=== PATIENT | male | born 1950 | race Caucasian/White ===

== ENCOUNTER 2016-06-03 08:29 | Emergency (ER) | payer OTHER ==
[~2016-06-03] VITALS: Ht 182.8 cm; Wt 102.1 kg
[~2016-06-03 08:29] MED LIST: BENADRYL ALLERG25 M5 PO; EPI-PEN1 MG/ML MR; MEDROL DOSEPAK4 MG PO
[2016-06-03] MEDS ORDERED: HYDROCODONE BIT1 T11 PO (11:24)
[2016-06-03] MEDS ORDERED: IBUPROFEN600 MG PO (11:24)
[2016-06-03] MEDS ORDERED: ZOFRAN ODT4 MG SL (11:24)
== END 2016-06-03 11:34 | disposition home or self-care (01) ==
LOC: ED 08:29
DX: S06.0X0A Concussion without loss of consciousness, initial encounter (principal); Z91.038 Other insect allergy status; M54.2 Cervicalgia; W22.8XXA Striking against or struck by other objects, initial encounter; Y93.89 Activity, other specified; Y92.89 Other specified places as the place of occurrence of the external cause; Y99.9 Unspecified external cause status

== ENCOUNTER 2016-06-05 11:26 | Emergency (ER) | payer OTHER ==
[~2016-06-05 11:26] MED LIST changes: +HYDROCODONE BIT1 T11 PO; +IBUPROFEN600 MG PO; +ZOFRAN ODT4 MG SL
[2016-06-05 12:11] LABS: BASO % 0.4 % (0.0-1.0); EOS # 0.1 10*3/uL (0.0-0.4); EOS % 1.9 % (1.0-4.0); HEMATOCRIT 38.5 % (42.0-52.0); HEMOGLOBIN 13.3 g/dl (14.0-18.0); LYMPH # 1.4 10*3/uL (1.3-4.4); LYMPH % 30.8 % (27.0-41.0); MEAN CELL VOLUME 90.6 fl (80.0-94.0); MEAN CORPUSCULAR HGB 31.3 pg (27.0-31.0); MEAN CORPUSCULAR HGB CONC 34.5 g/dl (33.0-37.0); MEAN PLATELET VOLUME 8.8 fl (9.6-12.3); MONO # 0.3 10*3/uL (0.1-1.0); MONO % 6.4 % (3.0-9.0); NEUT # 2.8 10*3/uL (2.3-7.9); NEUT % 60.3 % (47.0-73.0); PLATELET COUNT AUTOMATED 231 10*3/uL (130-400); RED BLOOD COUNT 4.25 10*6/uL (4.50-5.90); RED CELL DISTRI WIDTH 13.5 % (0-14.5); WHITE BLOOD COUNT 4.7 10*3/uL (4.8-10.8)
[2016-06-05 12:56] LABS: PROTHROMBIN TIME 10.3 SECONDS (9.0-12.4)
[2016-06-05 13:04] LABS: ALBUMIN 3.5 gm/dl (3.1-4.5); ALKALINE PHOSPHATASE 52 U/L (45-117); BILIRUBIN, TOTAL 0.4 mg/dl (0.2-1.0); BUN 22 mg/dl (7-24); CARBON DIOXIDE 26 mmol/L (21-32); CHLORIDE 108 mmol/L (98-107); CKMB 0.7 ng/ml (0.5-3.6); CPK 116 U/L (39-308); EST GLOM FILT AFRICAN AMERICAN > 60 ml/min; GLUCOSE 99 mg/dL (65-99); MAGNESIUM 2.4 mg/dL (1.5-2.1); POTASSIUM 4.3 mmol/L (3.5-5.1); SGOT/AST 26 IU/L (3-35); SGPT/ALT 34 U/L (12-78); SODIUM 143 mmol/L (136-145); TOTAL PROTEIN 6.9 gm/dL (6.4-8.2)
[2016-06-05 13:08] LABS: C-REACTIVE PROTEIN < 0.29 MG/DL (0-0.3)
[2016-06-05 13:09] LABS: TROPONIN I < 0.015 ng/ml (<0.045)
[2016-06-05] MEDS ORDERED: PREDNISONE50 MG PO (14:32)
== END 2016-06-05 15:10 | disposition home or self-care (01) ==
LOC: ED 11:26
PROVIDERS: Emergency Medicine
DX: S06.0X0D Concussion without loss of consciousness, subsequent encounter (principal); R51 Headache; Z91.030 Bee allergy status; X58.XXXD Exposure to other specified factors, subsequent encounter

== ENCOUNTER → 2016-07-07 | Outpatient (CLI) | payer OTHER ==
[~2016-07-07] MED LIST changes: +PREDNISONE50 MG PO
== END | disposition home or self-care (01) ==
LOC: MRI 07:41
DX: G44.019 Episodic cluster headache, not intractable (principal); H57.02 Anisocoria; Z82.49 Family history of ischemic heart disease and other diseases of the circulatory system

== ENCOUNTER → 2018-01-31 | Outpatient (CLI) | payer MEDICARE | END | disposition home or self-care (01) | LOC: RAD 12:40 | DX: M50.323 Other cervical disc degeneration at C6-C7 level (principal); M25.551 Pain in right hip; M47.892 Other spondylosis, cervical region ==

== ENCOUNTER → 2020-09-08 | Outpatient (CLI) | payer MEDICARE ==
[~2020-09-08] MED LIST changes: +XARELTO1 EACH PO
[2020-09-08 10:49] LABS: HEMATOCRIT 39.8 % (42.0-52.0); MEAN CELL VOLUME 90.9 fl (80.0-94.0); MEAN CORPUSCULAR HGB 30.4 pg (27.0-31.0); MEAN CORPUSCULAR HGB CONC 33.4 g/dl (33.0-37.0); MEAN PLATELET VOLUME 8.4 fl (9.6-12.3); RED BLOOD COUNT 4.38 10*6/uL (4.50-5.90); RED CELL DISTRI WIDTH 13.2 % (0-14.5); WHITE BLOOD COUNT 5.5 10*3/uL (4.8-10.8)
[2020-09-10 01:06] LABS: ANTI-THROMBIN III ACTIVITY 133 % (75-135); PROTEIN S - FUNCTIONAL 120 % (63-140); PROTEIN S, FREE 174 % (57-157); PROTEIN S, TOTAL 162 % (60-150)
[2020-09-10 04:07] LABS: DILUTE PROTHROMBIN TIME 57.7 sec (0.0-55.0); DPT CONFIRM RATIO 0.97 Ratio (0.00-1.40); PTT-LA 47.6 sec (0.0-51.9); THROMBIN TIME 20.5 sec (0.0-23.0)
[2020-09-10 08:08] LABS: LUPUS DRVVT 142.2 sec (0.0-47.0)
[2020-09-10 09:07] LABS: LUPUS REFLEX INTERPRETATION Comment: (.)
== END | disposition home or self-care (01) ==
LOC: LAB 09:45
PROVIDERS: ATTEND Family Medicine
DX: I26.99 Other pulmonary embolism without acute cor pulmonale (principal); E83.41 Hypermagnesemia; D64.9 Anemia, unspecified

== ENCOUNTER → 2020-10-08 | Outpatient (CLI) | payer MEDICARE | END | disposition home or self-care (01) | LOC: RESCLI 00:55 | PROVIDERS: ATTEND Internal Medicine | DX: D64.9 Anemia, unspecified (principal); I26.99 Other pulmonary embolism without acute cor pulmonale; E78.5 Hyperlipidemia, unspecified; F10.20 Alcohol dependence, uncomplicated; Z88.8 Allergy status to other drugs, medicaments and biological substances; Z79.899 Other long term (current) drug therapy ==

== ENCOUNTER 2023-11-07 08:05 | Inpatient (IN) | payer MEDICARE ==
[~2023-11-07] VITALS: Ht 182.8 cm; Wt 103.1 kg
[2023-11-07 08:12] VITALS: BP 117/79
[2023-11-07] MEDS ORDERED: ROSUVASTATIN CAL5 MG PO (08:36)
[2023-11-07] MEDS ORDERED: Ondansetron4 MG PO (08:36)
[2023-11-07] MEDS ORDERED: TOPIRAMATE25 M3 PO (08:36)
[2023-11-07] MEDS ORDERED: NAPROXEN500 MG PO (08:36)
[2023-11-07] MEDS ORDERED: SUMATRIPTAN SU100 M1 PO (08:37)
[2023-11-07] MEDS ORDERED: LOSARTAN POTASS50 M1 PO (08:37)
[2023-11-07] MEDS ORDERED: TAMSULOSIN HCL0.4 MG PO (08:37)
[2023-11-07 08:48] LABS: EOS # 0.1 10*3/uL (0.0-0.4); EOS % 1.5 % (1.0-4.0); HEMATOCRIT 35.7 % (42.0-52.0); LYMPH # 0.5 10*3/uL (1.3-4.4); LYMPH % 10.6 % (27.0-41.0); MEAN CELL VOLUME 93.9 fl (80.0-94.0); MEAN CORPUSCULAR HGB 31.1 pg (27.0-31.0); MEAN CORPUSCULAR HGB CONC 33.1 g/dl (33.0-37.0); MEAN PLATELET VOLUME 8.5 fl (9.6-12.3); MONO # 0.6 10*3/uL (0.1-1.0); MONO % 13.2 % (3.0-9.0); NEUT # 3.5 10*3/uL (2.3-7.9); NEUT % 74.5 % (47.0-73.0); PLATELET COUNT AUTOMATED 238 10*3/uL (130-400); RED CELL DISTRI WIDTH 13.6 % (0-14.5); WHITE BLOOD COUNT 4.7 10*3/uL (4.8-10.8)
[2023-11-07 08:59] LABS: ACT PARTIAL THROMBO TIME 30.2 SECONDS (20.0-32.1)
[2023-11-07 09:14] LABS: ALKALINE PHOSPHATASE 72 U/L (46-116); BUN 23 mg/dl (9-23); CHLORIDE 104 mmol/L (98-107); POTASSIUM 3.9 mmol/L (3.4-5.1); SGPT/ALT 46 U/L (5-49); TOTAL PROTEIN 7.4 gm/dL (6.0-8.0)
[2023-11-07] MEDS ORDERED: IOHEXOL 350 MG/ML 100 ML VIAL IV ONE (10:05)
[2023-11-07] MEDS ORDERED: SODIUM CHLORIDE 0.9% 100 ML BAG IV ONE (10:05)
[2023-11-07 11:42] VITALS: BP 104/57
[2023-11-07] MEDS ORDERED: Enoxaparin Sodium 100 MG/ML SYR SC ONE (11:45)
[2023-11-07] MEDS ORDERED: TOPIRAMATE 25 MG TAB PO ONE (12:10)
[2023-11-07] MEDS ORDERED: ACETAMINOPHEN 325 MG TAB PO PRN (12:50)
[2023-11-07] MEDS ORDERED: Ondansetron Hydrochloride 4 MG/2 ML VIAL IV PRN (12:50)
[2023-11-07] MEDS ORDERED: Enoxaparin Sodium 100 MG/ML SYR SC SCH ×2 (12:58→22:00)
[2023-11-07 16:00] VITALS: BP 110/56
[2023-11-07] MEDS ORDERED: Ketorolac Tromethamine 15 MG/ML VIAL IV ONE (18:55)
[2023-11-07 23:54] VITALS: BP 151/78
[2023-11-08] VITALS (9 sets, daily range): BP systolic 110–131; BP diastolic 53–68
[2023-11-08] MEDS ORDERED: HYDROCODONE-AC1 EACH PO (00:31)
[2023-11-08] MEDS ORDERED: PROCHLORPERAZIN10 MG PO (00:32)
[2023-11-08] MEDS ORDERED: BICALUTAMIDE50 MG PO (01:27)
[2023-11-08 05:35] LABS: ALKALINE PHOSPHATASE 66 U/L (46-116); BUN 26 mg/dl (9-23); CHLORIDE 105 mmol/L (98-107); CHOLESTEROL 131 mg/dL (<200); FREE T4 1.27 ng/dl (0.89-1.76); LDL CHOLESTEROL 77 mg/dL (9-159); POTASSIUM 3.7 mmol/L (3.4-5.1); SGPT/ALT 44 U/L (5-49); TOTAL PROTEIN 6.7 gm/dL (6.0-8.0); TRIGLYCERIDES 96 mg/dl (<150)
[2023-11-08 06:17] LABS: BASO % 0.6 % (0.0-1.0); EOS # 0.1 10*3/uL (0.0-0.4); EOS % 2.9 % (1.0-4.0); HEMATOCRIT 33.1 % (42.0-52.0); LYMPH # 0.4 10*3/uL (1.3-4.4); LYMPH % 12.4 % (27.0-41.0); MEAN CELL VOLUME 92.2 fl (80.0-94.0); MEAN CORPUSCULAR HGB 30.9 pg (27.0-31.0); MEAN CORPUSCULAR HGB CONC 33.5 g/dl (33.0-37.0); MEAN PLATELET VOLUME 8.9 fl (9.6-12.3); MONO # 0.5 10*3/uL (0.1-1.0); MONO % 14.5 % (3.0-9.0); NEUT # 2.4 10*3/uL (2.3-7.9); PLATELET COUNT AUTOMATED 242 10*3/uL (130-400); RED BLOOD COUNT 3.59 10*6/uL (4.50-5.90); RED CELL DISTRI WIDTH 13.4 % (0-14.5); WHITE BLOOD COUNT 3.5 10*3/uL (4.8-10.8)
[2023-11-08] MEDS ORDERED: Acetaminophen/Hydrocodone 5 MG/325 MG TABLET PO PRN (08:05)
[2023-11-08 08:35] LABS: VITAMIN D, 25-HYDROXY 42.4 ng/mL (30-100)
[2023-11-08] MEDS ORDERED: BICALUTAMIDE 50 MG TAB PO SCH (10:00)
[2023-11-08] MEDS ORDERED: TOPIRAMATE 25 MG TAB PO SCH (10:00)
[2023-11-08] MEDS ORDERED: Tamsulosin Hydrochloride 0.4 MG CAP PO SCH (10:00)
[2023-11-08] MEDS ORDERED: Losartan Potassium 50 MG TAB PO SCH (10:00)
[2023-11-08] MEDS ORDERED: LEVOFLOXACIN 750 MG TAB PO SCH (10:25)
[2023-11-08] MEDS ORDERED: SODIUM CHLORIDE 0.9% 1,000 ML IV ONE (11:55)
[2023-11-09] VITALS: BP 126/72
[2023-11-09 08:00] VITALS: BP 140/77
[2023-11-09] MEDS ORDERED: HEPARIN SODIUM 250 ML IV SCH (10:20)
[2023-11-09 16:00] VITALS: BP 109/59
[2023-11-09] MEDS ORDERED: WARFARIN SODIUM 5 MG TAB PO SCH (18:00)
[2023-11-09 20:00] VITALS: BP 106/48
[2023-11-10] VITALS: BP 107/59
[2023-11-10 04:26] LABS: BASO % 0.4 % (0.0-1.0); EOS # 0.1 10*3/uL (0.0-0.4); EOS % 3.5 % (1.0-4.0); HEMATOCRIT 33.1 % (42.0-52.0); LYMPH # 0.6 10*3/uL (1.3-4.4); LYMPH % 20.7 % (27.0-41.0); MEAN CELL VOLUME 91.2 fl (80.0-94.0); MEAN CORPUSCULAR HGB 31.1 pg (27.0-31.0); MEAN CORPUSCULAR HGB CONC 34.1 g/dl (33.0-37.0); MEAN PLATELET VOLUME 8.6 fl (9.6-12.3); MONO # 0.3 10*3/uL (0.1-1.0); MONO % 11.6 % (3.0-9.0); NEUT # 1.8 10*3/uL (2.3-7.9); NEUT % 63.1 % (47.0-73.0); PLATELET COUNT AUTOMATED 252 10*3/uL (130-400); RED BLOOD COUNT 3.63 10*6/uL (4.50-5.90); RED CELL DISTRI WIDTH 13.9 % (0-14.5); WHITE BLOOD COUNT 2.9 10*3/uL (4.8-10.8)
[2023-11-10 05:10] LABS: BUN 23 mg/dl (9-23); CHLORIDE 108 mmol/L (98-107); POTASSIUM 3.8 mmol/L (3.4-5.1)
[2023-11-10 08:00] VITALS: BP 122/51
[2023-11-10 12:00] VITALS: BP 124/55
[2023-11-10 16:00] VITALS: BP 100/64
[2023-11-10 20:19] VITALS: BP 117/58
[2023-11-11] VITALS: BP 110/54
[2023-11-11 06:22] LABS: EOS # 0.1 10*3/uL (0.0-0.4); EOS % 4.6 % (1.0-4.0); HEMATOCRIT 32.5 % (42.0-52.0); LYMPH # 0.6 10*3/uL (1.3-4.4); MEAN CELL VOLUME 91.8 fl (80.0-94.0); MEAN CORPUSCULAR HGB 31.6 pg (27.0-31.0); MEAN CORPUSCULAR HGB CONC 34.5 g/dl (33.0-37.0); MONO # 0.3 10*3/uL (0.1-1.0); MONO % 10.8 % (3.0-9.0); NEUT % 64.6 % (47.0-73.0); PLATELET COUNT AUTOMATED 279 10*3/uL (130-400); RED BLOOD COUNT 3.54 10*6/uL (4.50-5.90); RED CELL DISTRI WIDTH 13.9 % (0-14.5); WHITE BLOOD COUNT 3.1 10*3/uL (4.8-10.8)
[2023-11-11 06:29] LABS: ACT PARTIAL THROMBO TIME 35.4 SECONDS (20.0-32.1)
[2023-11-11 08:00] VITALS: BP 105/48
[2023-11-11 11:58] VITALS: BP 106/55
[2023-11-11] MEDS ORDERED: predniSONE 20 MG TAB PO SCH (14:05)
[2023-11-11 16:00] VITALS: BP 120/63
[2023-11-11] MEDS ORDERED: WARFARIN SODIUM 7.5 MG TAB PO SCH (18:00)
[2023-11-11 20:00] VITALS: BP 119/66
[2023-11-12] VITALS: BP 123/69
[2023-11-12 05:40] LABS: BUN 20 mg/dl (9-23); CHLORIDE 108 mmol/L (98-107); POTASSIUM 4.4 mmol/L (3.4-5.1)
[2023-11-12 06:24] LABS: ACT PARTIAL THROMBO TIME 58.6 SECONDS (20.0-32.1)
[2023-11-12 08:00] VITALS: BP 139/68
[2023-11-12 16:00] VITALS: BP 122/65
[2023-11-12 20:00] VITALS: BP 108/57
[2023-11-13] VITALS: BP 100/55
[2023-11-13 06:53] LABS: ACT PARTIAL THROMBO TIME 85.5 SECONDS (20.0-32.1)
[2023-11-13 08:00] VITALS: BP 135/76
[2023-11-13] MEDS ORDERED: GADOTERATE MEGLUMINE 10 MMOL/20 ML VIAL IV ONE (09:38)
[2023-11-13] MEDS ORDERED: Coumadin7.5 MG PO (10:37)
[2023-11-13 12:00] VITALS: BP 131/66
[2023-11-13] MEDS ORDERED: BISACODYL 5 MG TAB PO ONE (15:10)
[2023-11-13] MEDS ORDERED: WARFARIN SODIUM 6 MG TAB PO SCH (18:00)
== END 2023-11-13 15:45 | disposition home or self-care (01) | DRG 175 ==
LOC: ED 08:05 → 4E 11:48 → EDHOLD 11:48 → ICCU 11:48 → 4E 11-10 19:19
PROVIDERS: Emergency Medicine; Internal Medicine; Internal Medicine Critical Care Medicine; Registered Nurse; ADMIT Internal Medicine; ATTEND Internal Medicine
DX: I26.93 Single subsegmental thrombotic pulmonary embolism without acute cor pulmonale (principal); J15.69 Pneumonia due to other Gram-negative bacteria; E44.0 Moderate protein-calorie malnutrition; N17.9 Acute kidney failure, unspecified; J98.11 Atelectasis; D68.51 Activated protein C resistance; G44.029 Chronic cluster headache, not intractable; I10 Essential (primary) hypertension; E66.9 Obesity, unspecified; Z96.652 Presence of left artificial knee joint; E78.2 Mixed hyperlipidemia; R73.9 Hyperglycemia, unspecified; R00.1 Bradycardia, unspecified; Z85.46 Personal history of malignant neoplasm of prostate; Z68.30 Body mass index [BMI] 30.0-30.9, adult; Z91.030 Bee allergy status; Z79.1 Long term (current) use of non-steroidal anti-inflammatories (NSAID); Z79.899 Other long term (current) drug therapy; Z82.3 Family history of stroke

== ENCOUNTER → 2023-11-15 | Outpatient (CLI) | payer MEDICARE ==
[~2023-11-15] MED LIST changes: +BICALUTAMIDE50 MG PO; +Coumadin7.5 MG PO; +HYDROCODONE-AC1 EACH PO; +LOSARTAN POTASS50 M1 PO; +NAPROXEN500 MG PO; +Ondansetron4 MG PO; +PROCHLORPERAZIN10 MG PO; +ROSUVASTATIN CAL5 MG PO; +SUMATRIPTAN SU100 M1 PO; +TAMSULOSIN HCL0.4 MG PO; +TOPIRAMATE25 M3 PO
== END | disposition home or self-care (01) ==
LOC: LAB 10:26
PROVIDERS: ATTEND Registered Nurse
DX: I26.99 Other pulmonary embolism without acute cor pulmonale (principal)

== ENCOUNTER → 2023-11-17 | Outpatient (CLI) | payer MEDICARE | END | disposition home or self-care (01) | LOC: LAB 09:28 | PROVIDERS: ATTEND Registered Nurse | DX: I26.99 Other pulmonary embolism without acute cor pulmonale (principal) ==

== ENCOUNTER → 2023-11-20 | Outpatient (CLI) | payer MEDICARE | END | disposition home or self-care (01) | LOC: LAB 11:01 | PROVIDERS: ATTEND Registered Nurse | DX: I26.99 Other pulmonary embolism without acute cor pulmonale (principal) ==